=== PATIENT | female | born 1990 | race Caucasian/White ===

== ENCOUNTER 2021-01-19 19:32 | Outpatient (CLI) | payer OTHER ==
[2021-01-19 19:48] LABS: BASOPHILS # (AUTO) 0.1 10^3/uL (0.0-0.1); BASOPHILS % (AUTO) 0.5 %; EOSINOPHILS # (AUTO) 0.2 10^3/uL (0.0-0.7); EOSINOPHILS % (AUTO) 2.2 %; HCT - HEMATOCRIT 39.7 % (37.0-47.0); HGB - HEMOGLOBIN 12.9 g/dL (12.0-16.0); LYMPHOCYTES # (AUTO) 1.7 10^3/uL (1.5-3.5); LYMPHOCYTES % (AUTO) 17.6 %; MEAN CORPUSCULAR HEMOGLOBIN 28.7 pg (27.0-31.0); MEAN CORPUSCULAR HGB CONC 32.5 g/dL (32.0-36.0); MEAN CORPUSCULAR VOLUME 88.4 fL (81.0-99.0); MEAN PLATELET VOLUME 9.8 fL (7.9-10.8); MONOCYTES # (AUTO) 0.5 10^3/uL (0.0-1.0); NEUTROPHILS # (AUTO) 7.2 10^3/uL (1.5-6.6); NEUTROPHILS % (AUTO) 74.5 %; PLT - PLATELET COUNT 289 10^3/uL (130-450); RED BLOOD COUNT 4.49 10^6/uL (4.20-5.40); RED CELL DISTRIBUTION WIDTH 12.6 % (12.0-15.0); WHITE BLOOD COUNT 9.7 x10^3/uL (4.8-10.8)
--- NOTE | 2021-01-20 10:50 | Ultrasound Report ---
PROCEDURE: OB First Trimester w/TV INDICATIONS: POSTIVIE TEST OUTSIDE/PRIOR DATING DATA: Last menstrual period (LMP): 11/05/2020. LMP-based estimated date of delivery (BROCK): 08/12/2021. First dating scan (date and location): 01/19/2021. Estimated date of delivery (BROCK) from first dating scan: 08/30/2021. The below data below was generated using the ultrasound BROCK of 08/30/2021 TECHNIQUE: Real-time scanning was performed of the fetus and maternal pelvic organs, with image documentation. Endovaginal scanning was also performed to better visualize the fetus and maternal ovaries. COMPARISON: None FINDINGS: Embryo: Single living intrauterine identified. pole identified. [place]-rump length me asures 1.7 cm corresponding to ultrasound estimated gestational age of 8 weeks 1 day. heart rat e measured at 160 bpm. Until note made of a small 1.1 x 0.4 cm subchorionic/periimplantational bleed. Measurement variability in dating: +/- 4 weeks by LMP, +/- 7 days by mean sac diameter (use before 6 weeks gestation if crown-rump length not able to be measured), +/- 5 days by crown-rump length (6-12 weeks gestation). Maternal organs: Small right ovarian corpus luteal cyst. Left ovary is sonographically normal. IMPRESSION: Single living intrauterine with ultrasound estimated gestational age of 8 weeks 1 day corre sponding to ultrasound BROCK of 08/30/2021. Reviewed by: Fernanda Arceo MD, PhD on 01/20/2021 10:49 AM PDT Approved by: Fernanda Arceo MD, PhD on 01/20/2021 10:49 AM PDT Station ID: [id number]
[2021-01-21 12:42] LABS: HEPATITIS B SURFACE ANTIGEN NON-REACTIVE (NON-REACTIVE); HEPATITIS C ANTIBODY NON-REACTIVE (NON-REACTIVE)
[2021-01-21 16:07] LABS: HIV AG/AB 4TH GEN NON-REACTIVE (NON-REACTIVE)
== END 2021-01-19 19:33 | disposition home or self-care (01) ==
LOC: DI 19:32
PROVIDERS: ATTEND Obstetrics & Gynecology
DX: Z36.89 Encounter for other specified antenatal screening (principal); Z32.01 Encounter for pregnancy test, result positive
CPT/HCPCS: 36415; 85025; 86592; 86762; 86787; 86803; 86850; 86900; 86901; 87340; 87389

== ENCOUNTER 2021-01-20 08:00 | Outpatient (CLI) | payer OTHER ==
[2021-01-21 13:19] LABS: MUDS CUTOFF CONCENTRATIONS CUTOFF CONC BELOW:
[2021-01-21 13:34] LABS: AMPHETAMINE SCREEN,URINE NEGATIVE (NEGATIVE); BARBITURATE SCREEN,UR NEGATIVE (NEGATIVE); BENZODIAZEPINES SCREEN, URINE NEGATIVE (NEGATIVE); COCAINE SCREEN URINE NEGATIVE (NEGATIVE); METHADONE SCREEN, URINE NEGATIVE (NEGATIVE); METHAMPHETAMINES SCREEN, URINE NEGATIVE (NEGATIVE); OPIATE SCREEN, URINE NEGATIVE (NEGATIVE); OXYCODONE SCREEN, URINE NEGATIVE (NEGATIVE); PROPOXYPHENE SCREEN, URINE NEGATIVE (NEGATIVE); THC CANNABINOID SCREEN, URINE NEGATIVE (NEGATIVE); TRICYCLIC ANTIDEPRESSANT,URINE NEGATIVE (NEGATIVE)
[2021-01-21 20:42] LABS: CHLAMYDIA TRACHOMATIS DNA NEGATIVE (NEGATIVE); NEISSERIA GONORRHOEAE DNA NEGATIVE (NEGATIVE); TRICHOMONAS VAGINALIS DNA NEGATIVE (NEGATIVE)
== END 2021-01-20 23:59 | disposition home or self-care (01) ==
LOC: LAB.WC 08:00
PROVIDERS: ATTEND Obstetrics & Gynecology
DX: Z36.89 Encounter for other specified antenatal screening (principal)
CPT/HCPCS: 80306; 87491; 87591; 87661

== ENCOUNTER 2021-04-12 18:47 | Outpatient (CLI) | payer OTHER ==
--- NOTE | 2021-04-13 12:04 | Ultrasound Report ---
PROCEDURE: OB Detailed Eval INDICATIONS: SUPERV HIGH RISK PREG, FAS OUTSIDE/PRIOR DATING DATA: Last menstrual period (LMP): 11/05/2020. LMP-based estimated date of delivery (BROCK): 08/12/2021. First dating scan (date and location): 01/19/2021. Estimated date of delivery (BROCK) from first dating scan: 08/30/2021. The below data below was generated using the ultrasound BROCK of 08/30/2021 TECHNIQUE: Real-time scanning was performed of the fetus, with image documentation and biometric measurements. Endovaginal scanning: Not performed. COMPARISON: OB ultrasound 01/19/2021 FINDINGS: General: A single living intrauterine gestation is present. Presentation: Variable Placenta: Placental position is fundal, without previa. Amniotic fluid index: 14.6 cm, normal for gestational age. Largest pocket 4.1 cm. heart rate: 150 beats per minute. Maternal cervical canal: 3.9 cm long; normal length is 2.5 cm or more. biometrics: Biparietal diameter: 5.2 cm, 21 weeks 5 days Head circumference: 19.0 cm, 21 weeks 2 days Abdominal circumference: 16.6 cm, 21 weeks 5 days Femur length: 3.4 cm, 20 weeks 5 days Estimated gestational age from initial scan: 20 weeks 0 days Composite gestational age from present scan: 20 weeks 6 days Estimated weight and percentile: 411 g, 97th percentile. Measurement variability in biometric dating: +/- 10 days from 12-20 weeks gestation, +/- 2 weeks from 20-30 weeks gestation, +/- 3 weeks at 30 weeks gestation or later. Anatomic survey: Neuro: Ventricles are normal at less than 10 mm. Cisterna magna is normal at 3-11 mm. Cerebellum i s normal in size and morphology. Nuchal skin fold: Normal at less than 6 mm between 14 and 20 weeks gestational age. Face: Nose and lips, facial profile are normal. Spine: No evidence for spina bifida. Heart: 4-chambered heart is present, with normal ventricular outflow tracts. Diaphragm: Diaphragm is intact. Stomach: Left-sided stomach is present. Kidneys: No hydronephrosis. Normal is less than 5 mm in 2nd trimester, less than 7 mm in 3rd trimester. Cord: 3 vessel cord has orthotopic insertion. Bladder: Normal in size. Extremities: All 4 extremities are visualized. IMPRESSION: 1. Single live intrauterine . 2. Estimated weight 411 g, at the 97th percentile for gestational age. Recommend correlation a nd follow-up to exclude macrosomia. 3. Normal anatomic survey. 4. Normal amniotic fluid index. Reviewed by: David Charles MD on 04/13/2021 12:03 PM PDT Approved by: David Charles MD on 04/13/2021 12:03 PM PDT Station ID: [id number]
== END 2021-04-12 18:48 | disposition home or self-care (01) ==
LOC: DI 18:47
PROVIDERS: ATTEND Obstetrics & Gynecology
DX: O09.92 Supervision of high risk pregnancy, unspecified, second trimester (principal); Z3A.20 20 weeks gestation of pregnancy

== ENCOUNTER 2021-04-21 16:32 | Outpatient (CLI) | payer OTHER | END 2021-04-21 16:33 | disposition home or self-care (01) | LOC: LAB 16:32 | PROVIDERS: ATTEND Obstetrics & Gynecology | DX: O09.90 Supervision of high risk pregnancy, unspecified, unspecified trimester (principal) | CPT/HCPCS: 36415; 82950 ==

== ENCOUNTER 2021-06-27 14:40 | Outpatient (CLI) | payer OTHER | END 2021-06-27 14:41 | disposition home or self-care (01) | LOC: LAB 14:40 | PROVIDERS: ATTEND Obstetrics & Gynecology | DX: O09.90 Supervision of high risk pregnancy, unspecified, unspecified trimester (principal) | CPT/HCPCS: 36415; 82950 ==

== ENCOUNTER 2021-07-20 08:00 | Outpatient (CLI) | payer OTHER | END 2021-07-20 23:59 | disposition home or self-care (01) | LOC: LAB.WC 08:00 | PROVIDERS: ATTEND Obstetrics & Gynecology | DX: Z36.85 Encounter for antenatal screening for Streptococcus B (principal) | CPT/HCPCS: 87797 ==

== ENCOUNTER 2021-07-20 13:52 | Outpatient (CLI) | payer OTHER ==
[2021-07-20 14:38] LABS: BASOPHILS % (AUTO) 0.4 %; EOSINOPHILS # (AUTO) 0.3 10^3/uL (0.0-0.7); EOSINOPHILS % (AUTO) 2.9 %; HCT - HEMATOCRIT 34.1 % (37.0-47.0); HGB - HEMOGLOBIN 11.2 g/dL (12.0-16.0); LYMPHOCYTES # (AUTO) 1.4 10^3/uL (1.5-3.5); LYMPHOCYTES % (AUTO) 15.4 %; MEAN CORPUSCULAR HEMOGLOBIN 26.3 pg (27.0-31.0); MEAN CORPUSCULAR HGB CONC 32.8 g/dL (32.0-36.0); MEAN PLATELET VOLUME 10.5 fL (7.9-10.8); MONOCYTES # (AUTO) 0.9 10^3/uL (0.0-1.0); MONOCYTES % (AUTO) 10.1 %; NEUTROPHILS # (AUTO) 6.3 10^3/uL (1.5-6.6); PLT - PLATELET COUNT 271 10^3/uL (130-450); RED BLOOD COUNT 4.26 10^6/uL (4.20-5.40); RED CELL DISTRIBUTION WIDTH 13.7 % (12.0-15.0); WHITE BLOOD COUNT 9.1 x10^3/uL (4.8-10.8)
[2021-07-20 14:40] LABS: CREATININE,URINE 243.7 mg/dL; PROTEIN/CREATININE RATIO,URINE 0.2 (<=0.2)
[2021-07-20 14:50] LABS: ALBUMIN 2.7 g/dL (3.2-5.5); ALBUMIN/GLOBULIN RATIO 0.7 (1.0-2.2); BILIRUBIN,TOTAL 0.4 mg/dL (0.2-1.0); CALCIUM 9.1 mg/dL (8.5-10.3); CREATININE 0.5 mg/dL (0.4-1.0); POTASSIUM 4.2 mmol/L (3.5-5.0); TOTAL PROTEIN 6.6 g/dL (6.7-8.2)
[2021-07-20 15:27] VITALS: BP 159/79
--- NOTE | 2021-07-20 16:53 | PROVIDER PROGRESS NOTE ---
- HPI Chief Complaint: Hypertension/PIH Current : Vital Signs Blood Pressure 154/69 H 07/20/21 14:10 Temperature 98.6 F 07/20/21 14:18 Heart Rate Respiratory Rate Blood Pressure 159/79 H 07/20/21 15:10 O2 Saturation - Procedures OB Procedure Performed: NST Diagnosis/Indication for NST: Gestational Hypertension NST Procedure: FHT: 130 beats per baseline, moderate variability, accelerations present, no decelerations. [place]: Irregular, not strong enough to bother patient. Service Date of procedure: 07/20/21 (Read 07/20/21) Procedure Details: NST Procedure Start Date 07/20/21 Start Time 14:10 Stop Time 15:55 Vibroacoustic Stimulation Used No Patient States Movement Yes Findings: Patient is a 30-year-old G1, P0 at 34 weeks 1 day [id number] presenting to triage for gestational hypertension. She was sent from clinic today for elevated blood pressures. She has good movement, no leaking, no vaginal bleeding. She denies headache, right upper quadrant pain, changes in vision. Past medical history Anxiety Obesity Past surgical history Wrist surgery Family history Mother: Obesity Father: Obesity, diabetes, hypertension Maternal grandfather: Lung cancer Social history Denies tobacco, alcohol, drugs Physical Temp Pulse Resp BP Pulse Ox 98.6 F 159/79 H 07/20/21 14:18 07/20/21 15:10 Constitutional: alert, no acute distress, well hydrated, well developed, well no urished, appropriate dress. Skin: normal turgor, normal color. Head: atraumatic, normocephalic. Cardiovascular: RRR. Respiratory: no respiratory distress. Abdomen: Gravid nondistended, nontender. Neurologic: normal, sensation intact, motor intact. Psych: affect and mood appropriate, normal interaction, good eye contact. Assessment and plan 30-year-old at 34 weeks 1 day gestation with gestational hypertension 1. Gestational hypertension: -No signs or symptoms of preeclampsia -Platelets, AST/ALT, protein creatinine ratio were all normal. -Patient did have elevated blood pressure, but these were done with a cuff to small along her forearm. Repeated with an adequate cuff sized on her upper arm and were elevated, but not severe range. -Patient has follow-up in clinic for blood pressure check as well as subsequent check. -Preeclampsia warning signs and labor precautions given. -Discussed induction of labor at 37 weeks or sooner if symptoms worsen.
== END 2021-07-20 16:55 | disposition home or self-care (01) ==
LOC: WFO 13:52 → FBP 13:55 → WFO 16:55
PROVIDERS: ATTEND Obstetrics & Gynecology
DX: O13.3 Gestational [pregnancy-induced] hypertension without significant proteinuria, third trimester (principal); Z3A.34 34 weeks gestation of pregnancy
CPT/HCPCS: 36415; 59025; 80053; 82570; 84156; 85025; 99215

== ENCOUNTER 2021-07-29 17:09 | Outpatient (CLI) | payer OTHER ==
--- NOTE | 2021-08-01 10:49 | Ultrasound Report ---
PROCEDURE: OB F/U or Repeat INDICATIONS: SUPERV OF HIGH RISK PREG, EXCESSIVE GROWTH OUTSIDE/PRIOR DATING DATA: Last menstrual period (LMP): 11/05/2020. LMP-based estimated date of delivery (BROCK): 08/12/2021. First dating scan (date and location): 01/19/2021. Estimated date of delivery (BROCK) from first dating scan: 08/30/2021. The below data below was generated using the ultrasound derived BROCK of 08/30/2021 TECHNIQUE: Real-time scanning was performed of the fetus, with image documentation and biometric measurements. COMPARISON: 04/12/2021, 01/19/2021. FINDINGS: General: A single living intrauterine gestation is present. Presentation: Vertex Placenta: Placental position is fundal, without previa. Amniotic fluid index: 11.1 cm, within normal limits for gestational age. Largest pocket measures 4.6 cm. heart rate: 121 beats per minute. Maternal cervical canal: Not well seen. biometrics: Biparietal diameter: 9.2 cm, 37 weeks 3 days Head circumference: 33.7 cm, 38 weeks 5 days Abdominal circumference: 35.2 cm, 39 weeks 1 day Femur length: 7.0 cm, 35 weeks 6 days Estimated gestational age from initial scan: 35 weeks 3 days Composite gestational age from present scan: 37 weeks 6 days Estimated weight and percentile: 3408 g corresponding to the 98th percentile Measurement variability in biometric dating: +/- 10 days from 12-20 weeks gestation, +/- 2 weeks from 20-30 weeks gestation, +/- 3 weeks at 30 weeks gestation or more. IMPRESSION: 1. Single living intrauterine demonstrating interval growth with estimated weight at the 98th percentile, again suggestive of developing macrosomia. 2. Maternal cervical canal not well seen. 3. Amniotic fluid index within normal limits. Reviewed by: Ray Alicea MD on 08/01/2021 10:47 AM PST Approved by: Ray Alicea MD on 08/01/2021 10:47 AM PST Station ID: [id number]
== END 2021-07-29 17:10 | disposition home or self-care (01) ==
LOC: DI 17:09
PROVIDERS: ATTEND Obstetrics & Gynecology
DX: O09.93 Supervision of high risk pregnancy, unspecified, third trimester (principal); O36.63X1 Maternal care for excessive fetal growth, third trimester, fetus 1; Z3A.37 37 weeks gestation of pregnancy

== ENCOUNTER 2021-08-03 10:33 | Outpatient (CLI) | payer OTHER ==
[2021-08-03 10:51] VITALS: BP 120/73
--- NOTE | 2021-08-03 12:51 | Ultrasound Report ---
PROCEDURE: OB Limited INDICATIONS: gest. HTN OUTSIDE/PRIOR DATING DATA: Last menstrual period (LMP): 11/05/2020. LMP-based estimated date of delivery (BROCK): 08/12/2021. First dating scan (date and location): 01/19/2021. Estimated date of delivery (BROCK) from first dating scan: 08/30/2021. The below data below was generated using the ultrasound BROCK of 08/30/2021 TECHNIQUE: Real-time scanning was performed of the fetus, with image documentation. Endovaginal scanning: Not performed. COMPARISON: OB ultrasound 07/29/2021. FINDINGS: A single living intrauterine gestation is present. Presentation: Vertex Placenta: Placental position is anterior fundal, without previa. Amniotic fluid index: 23.7 cm, normal for gestational age. Largest pocket 7 cm. heart rate: 140 beats per minutes. Maternal cervical canal: Not well seen. Estimated gestational age from initial scan: 36 weeks 1 day. IMPRESSION: 1. Cadena living intrauterine at 36 weeks 1 day based on prior ultrasound. Vertex positi on. 2. Normal placenta. MARIA D 23.7 cm is within normal limits. Reviewed by: Tyson Smith MD on 08/03/2021 12:50 PM PST Approved by: Tyson Smith MD on 08/03/2021 12:50 PM PST Station ID: [id number]
--- NOTE | 2021-08-03 14:58 | PROCEDURE REPORT ---
- HPI Diagnosis/Indication for NST: Gestational Hypertension Current EDU 08/30/21 Gestation 36 Weeks and 1 Days 1 Para 0 Vital Signs Temperature 98.6 F 08/03/21 10:41 Heart Rate 98 08/03/21 10:41 Respiratory Rate 18 08/03/21 10:41 Blood Pressure 120/73 08/03/21 10:41 Temperature 98.6 F 08/03/21 10:41 Heart Rate 98 08/03/21 10:41 Respiratory Rate 18 08/03/21 10:41 Blood Pressure 120/73 08/03/21 10:41 O2 Saturation - NST Procedure NST Procedure Start Date 08/03/21 Start Time 10:45 Stop Time 11:30 Vibroacoustic Stimulation Used No Patient States Movement Yes - Results and Plan Findings/Impression: heart rate baseline-140beats per minutes Moderate variability Accelerations 15x15 Decelerations none Contractions rare NST reactive and reassuring MARIA D 23 ultrasound., High normal Plan: Continue twice-weekly NST/ BPP
== END 2021-08-03 12:15 | disposition home or self-care (01) ==
LOC: WFO 10:33 → FBP 10:35 → WFO 12:15
PROVIDERS: ATTEND Obstetrics & Gynecology
DX: O13.3 Gestational [pregnancy-induced] hypertension without significant proteinuria, third trimester (principal); Z3A.36 36 weeks gestation of pregnancy
CPT/HCPCS: 59025

== ENCOUNTER 2021-08-08 13:02 | Outpatient (CLI) | payer OTHER ==
[2021-08-08 13:19] VITALS: BP 136/81
--- NOTE | 2021-08-08 15:54 | Ultrasound Report ---
PROCEDURE: OB Limited INDICATIONS: Gestational hypertension; ; EDC 08/30/2021 OUTSIDE/PRIOR DATING DATA: Last menstrual period (LMP): 11/05/2020. LMP-based estimated date of delivery (BROCK): 08/12/2021. First dating scan (date and location): 01/19/2021. Estimated date of delivery (BROCK) from first dating scan: 08/30/2021. The below data below was generated using the ultrasound BROCK of 08/30/2021 TECHNIQUE: Real-time scanning was performed of the fetus, with image documentation. Endovaginal scanning: Not performed COMPARISON: 08/03/2021 FINDINGS: A single living intrauterine gestation is present. Presentation: Vertex Placenta: Placental position is fundal, without previa. Amniotic fluid index: 20.6 cm, within normal limits for gestational age. (Previously 23.7 cm). Larges t pocket 9.1 cm. heart rate: 145 beats per minutes. Maternal cervical canal: 3.3 cm long; normal length is 2.5 cm or more. Not well seen. Estimated gestational age from initial scan: 36 weeks 6 days. IMPRESSION: 1. Cadena living intrauterine at 36 weeks 6 days based on prior ultrasound. Vertex posit ion. 2. Normal placenta. MARIA D within normal limits measuring 20.6 cm. Reviewed by: Tyson Smith MD on 08/08/2021 3:52 PM PST Approved by: Tyson Smith MD on 08/08/2021 3:52 PM PST Station ID: [id number]
--- NOTE | 2021-08-08 19:37 | PROCEDURE REPORT ---
- HPI Diagnosis/Indication for NST: Gestational Hypertension Current EDU 08/30/21 Gestation 36 Weeks and 6 Days 1 Para 0 Vital Signs Temperature 97.8 F 08/08/21 13:13 Heart Rate 99 08/08/21 13:13 Respiratory Rate 18 08/08/21 13:13 Blood Pressure 136/81 H 08/08/21 13:13 Temperature 97.9 F 08/08/21 13:16 Heart Rate 99 08/08/21 13:16 Respiratory Rate 18 08/08/21 13:16 Blood Pressure 136/81 H 08/08/21 13:16 O2 Saturation 100 08/08/21 13:16 - NST Procedure NST Procedure Start Date 08/08/21 Start Time 13:12 Stop Time 13:33 Vibroacoustic Stimulation Used No Patient States Movement Yes EFM 135 mod ellis 15x15 accels no decels TOCO: quiet - Results and Plan Plan: Patient is a 30 yo at 36+6 with affected by GHTN and suspected macrosomia Cat I tracing MARIA D 20 Plan for IOL tomorrow at 37 weeks DOS: 08/08/21 NST read: 08/08/21 DX: IUP at 36+6 wga Gestational HTN Suspected macrosomia
== END 2021-08-08 15:20 | disposition home or self-care (01) ==
LOC: WFO 13:02 → FBP 13:07 → WFO 15:20
PROVIDERS: ATTEND Obstetrics & Gynecology
DX: O13.3 Gestational [pregnancy-induced] hypertension without significant proteinuria, third trimester (principal); Z3A.36 36 weeks gestation of pregnancy
CPT/HCPCS: 59025

== ENCOUNTER 2021-08-08 21:19 | Inpatient (IN) | payer OTHER ==
[2021-08-08] MEDS ORDERED: LIDOCAINE-MPF 1% 30 ML VIAL ID PRN (21:24)
[2021-08-08] MEDS ORDERED: miSOPROStoL 200 MCG TABLET BC ONE (21:24)
[2021-08-08] MEDS ORDERED: SODIUM CHLORIDE FLUSH 0.9% 10 ML SYRINGE IVP PRN (21:24)
[2021-08-08] MEDS ORDERED: METHYLERGONOVINE 0.2 MG/ML VIAL IM PRN (21:24)
[2021-08-08] MEDS ORDERED: TERBUTALINE 1 MG/ML VIAL SUBQ PRN (21:24)
[2021-08-08] MEDS ORDERED: hydrALAZINE INJ 20 MG/ML VIAL IVP PRN ×2 (21:24)
[2021-08-08] MEDS ORDERED: OXYTOCIN/SODIUM CHLORIDE 500 ML IV PRN (21:24)
[2021-08-08] MEDS ORDERED: LABETALOL 20 MG/4 ML SYRINGE IVP PRN ×3 (21:24)
[2021-08-08] MEDS ORDERED: NIFEdipine 10 MG CAPSULE PO PRN (21:24)
[2021-08-08] MEDS ORDERED: miSOPROStoL 200 MCG TABLET PR ONE (21:24)
[2021-08-08] MEDS ORDERED: CARBOPROST TROMETHAMINE 250 MCG/ML AMP IM PRN (21:24)
[2021-08-08] MEDS ORDERED: OXYTOCIN 10 UNIT/ML VIAL IM PRN (21:24)
[2021-08-08] MEDS ORDERED: TRANEXAMIC ACID IN NACL 1,000 MG/100 ML BAG IV PRN (21:24)
[2021-08-08] MEDS ORDERED: fentaNYL 100 MCG/2 ML VIAL IVP PRN (21:24)
--- NOTE | 2021-08-08 21:36 | HISTORY & PHYSICAL EXAMINATION ---
Admit History - Visit Reason Visit Reason: Membranes rupture - : 1 Parity: 0 Risk/History: positive: induced HTN, High risk - Mother's Labs Mother's Blood Type: positive: A Mother's RH: positive: Positive GBS: positive: Group B Step Negative Rubella Status: positive: Immune - Other Maternal History Other Maternal History: ID: Patient is a 30 yo at 36+6 wga here with ruptured membranes HPI: has been complicated by GHTN with plan for IOL on 08/09/21. Patient reports large gush of fluid this evening as she was planning for a bath. Continues to have high volume leakage. Not feeling contractions but has contraction on monitor. No VB. Endorses movement. Mild range pressures during late . No PIH symptoms and negative PIH labs. Has been having severe pruritus in late . BA ordered but not completed. Continues to have severe itching. Measures size greater than dates. EFW 97%ile with 3408g estimated at 34-35 weeks. PNC: LMP 11/05/20 gives BROCK of 08/12/2021 US on 01/19/21 at 8w1d gives BROCK 08/30/21 Final BROCK 08/30/21 BMI>40: -ASA 81 mg at 12 week -early glucola- 121 - Suspected macrosomia -S>D; US at 35 weeks shows EFW 98%ile, 3408 g Pruritus today: ordering BA anf LFTs A pos/Rub imm GENETICS: Desires [place] with AFP- declined by ; declines other testing -Also desires CF carrier screening- ordered. Discussed in FU. Did not complete. FAS: EFW 97%ile, 3VC, fundal, CL 3.9 FAS wnl TDAP 06/09 Influenza declined Glucola: 121- early glcuola Repeat Glucola 06/27 results 133 HSV Denies GBS: 07/20/2021 NEGATIVE Breast pump: 06/08 PAP: Patient prefers to wait until 6 week pp visit Past Medical History: Reviewed and updated today: Anxiety Disorder BMI > 40 Past Surgical History: wrist (2013) Family History Summary: Weight Disorder for Mother Diabetes for Father Hypertension for Father Weight Disorder for Father Lung Cancer for Aunt Lung Cancer for Maternal Grandfather Social History Summary: Patient has never smoked. Patient has never used smokeless tobacco. 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 -Patient would like to have an hour to see if labor progresses and then is open to pitocin -Reviewed risks of choriomanionitis. Increases with increased frequency of SVE, will limit cervical exams -Open to augmentation with pitocin as indicated GHTN: Isolated severe range pressure with subsequent mild rnage -No PIH symptoms -PIH labs pending -Labetalol vs nifed for severe range pressures; orders submitted -Magnesium infusion with onset of severe features QUESTION OF CHOLESTASIS: Patient with ongoign pruritus -Did not complete BA assessment -LFTs pending at admit FWB: Vertex, suspected LGA, GBS negative, Cat I tracing -CEFM -Remain cognizant of EFW in the setting of dystotic labor course. VAVD only with careful consideration of clinical scenario PAIN: Desires epidural. OK with placement on patient request In-patient care Meds/Allgy - Allergies Allergies/Adverse Reactions: Allergies Allergy/AdvReac Type Severity Reaction Status Date / Time shellfish derived Allergy Unknown Unknown Verified 08/08/21 21:38
[2021-08-08] MEDS ORDERED: LACTATED RINGERS 500 ML IV ONE (21:38)
[2021-08-08] MEDS: SODIUM CHLORIDE FLUSH 0.9% 10 ML SYRINGE IVP SCH (22:40)
[2021-08-08 23:50] LABS: BASOPHILS # (AUTO) 0.1 10^3/uL (0.0-0.1); BASOPHILS % (AUTO) 0.5 %; EOSINOPHILS # (AUTO) 0.3 10^3/uL (0.0-0.7); EOSINOPHILS % (AUTO) 2.8 %; HCT - HEMATOCRIT 31.8 % (37.0-47.0); HGB - HEMOGLOBIN 10.3 g/dL (12.0-16.0); LYMPHOCYTES # (AUTO) 1.5 10^3/uL (1.5-3.5); LYMPHOCYTES % (AUTO) 16.6 %; MEAN CORPUSCULAR HEMOGLOBIN 25.7 pg (27.0-31.0); MEAN CORPUSCULAR HGB CONC 32.4 g/dL (32.0-36.0); MEAN CORPUSCULAR VOLUME 79.3 fL (81.0-99.0); MEAN PLATELET VOLUME 11.5 fL (7.9-10.8); MONOCYTES # (AUTO) 0.9 10^3/uL (0.0-1.0); MONOCYTES % (AUTO) 9.5 %; NEUTROPHILS # (AUTO) 6.4 10^3/uL (1.5-6.6); NEUTROPHILS % (AUTO) 69.9 %; PLT - PLATELET COUNT 267 10^3/uL (130-450); RED BLOOD COUNT 4.01 10^6/uL (4.20-5.40); RED CELL DISTRIBUTION WIDTH 14.2 % (12.0-15.0); WHITE BLOOD COUNT 9.2 x10^3/uL (4.8-10.8)
[2021-08-09 00:03] LABS: ALBUMIN 2.5 g/dL (3.2-5.5); ALBUMIN/GLOBULIN RATIO 0.6 (1.0-2.2); BILIRUBIN,TOTAL 0.3 mg/dL (0.2-1.0); CALCIUM 8.6 mg/dL (8.5-10.3); CREATININE 0.5 mg/dL (0.4-1.0); POTASSIUM 3.9 mmol/L (3.5-5.0); TOTAL PROTEIN 6.5 g/dL (6.7-8.2)
[2021-08-09] MEDS: LACTATED RINGERS 1,000 ML IV SCH ×2 (00:38→08:34)
[2021-08-09] MEDS ORDERED: OXYTOCIN/SODIUM CHLORIDE 500 ML IV SCH (01:00)
[2021-08-09] MEDS: LABETALOL 100 MG TABLET PO SCH ×3 (01:25→14:32)
--- NOTE | 2021-08-09 01:34 | ANESTHESIA ---
Pre-Anesthesia VS, & Labs - Diagnosis active labor - Procedure labor epidural Vital Signs: Temp Pulse Resp BP Pulse Ox 37.4 C 87 20 151/73 H 08/08/21 22:20 08/08/21 22:20 08/08/21 22:20 08/08/21 22:20 Height: 5 ft 7 in Weight (kg): 127.913 kg Body Mass Index: 44.1 BMI Classification: Morbidly Obese - NPO >8 hours - Is Patient ?: Yes - Lab Results Current Lab Results: Laboratory Tests 08/08/21 22:40: Blood Type A POSITIVE, Antibody Screen NEGATIVE, Crossmatch IS Only See Detail 08/08/21 22:40: Sodium 129 L, Potassium 3.9, Chloride 101, Carbon Dioxide 18 L, Anion Gap 10.0, BUN 12, Creatinine 0.5, Estimated GFR (MDRD) 147, Glucose 145 H, Calcium 8.6, Total Bilirubin 0.3, AST 22, ALT 28, Alkaline Phosphatase 194 H, Total Protein 6.5 L, Albumin 2.5 L, Globulin 4.0, Albumin/Globulin Ratio 0.6 L 08/08/21 22:40: WBC 9.2, RBC 4.01 L, Hgb 10.3 L, Hct 31.8 L, MCV 79.3 L, MCH 25.7 L, MCHC 32.4, RDW 14.2, Plt Count 267, MPV 11.5 H, Neut # (Auto) 6.4, Lymph # (Auto) 1.5, [place] # (Auto) 0.9, Eos # (Auto) 0.3, Baso # (Auto) 0.1, Absolute Nucleated RBC 0.00, Nucleated RBC % 0.0 Lab results reviewed: Yes Fish Bones: 08/08/21 22:40 08/08/21 22:40 Home Medications and Allergies Active Medications Carboprost Tromethamine (Carboprost Tromethamine 250 Mcg/Ml Amp) 250 mcg IM ONCE PRN PRN Reason: Hemorrhage Stop: 08/09/21 21:23 Fentanyl (Fentanyl 100 Mcg/2 Ml Vial) 50 mcg IVP Q1H PRN PRN Reason: Severe Pain (score 7-10) Hydralazine HCl (Hydralazine Inj 20 Mg/Ml Vial) 10 mg IVP ONCE PRN; Protocol PRN Reason: SBP> or= 160 OR DBP> or= 110 Stop: 08/09/21 21:23 Hydralazine HCl (Hydralazine Inj 20 Mg/Ml Vial) 10 mg IVP .ONCE PRN; Protocol PRN Reason: Step 9 of Labetalol protocol Stop: 08/13/21 21:29 Oxytocin/Sodium Chloride (Pitocin/Sodium Chloride) 500 mls @ 999 mls/hr IV PRN PRN; Protocol PRN Reason: POST- HEMORR PREVENTION Tranexamic Acid (Tranexamic 1,000 Mg/100ml-Nacl) 1,000 mg in 100 mls @ 600 mls/hr IV Q30M PRN PRN Reason: EBL >1200mL and within 3hr Lactated Ringer's (Lr) 1,000 mls @ 125 mls/hr IV .Q8H RONEY Last Admin: 08/09/21 00:38 Dose: 125 mls/hr Documented by: Oxytocin/Sodium Chloride (Pitocin/Sodium Chloride) 500 mls @ 1 mls/hr IV TITR RONEY; Protocol Last Admin: 08/09/21 00:45 Dose: 1 milliunit/min, 1 mls/hr Documented by: Labetalol HCl (Labetalol 20 Mg/4 Ml Syringe) 20 mg IVP ONCE PRN; Protocol PRN Reason: SBP> or= 160 OR DBP> or= 110 Stop: 08/11/21 21:23 Labetalol HCl (Labetalol 20 Mg/4 Ml Syringe) 20 - 80 mg IVP Q10M PRN; Protocol PRN Reason: SBP> or= 160 OR DBP> or= 110 Labetalol HCl (Labetalol 20 Mg/4 Ml Syringe) 20 mg IVP .ONCE PRN; Protocol PRN Reason: Step 9 of nifedipine protocol Stop: 08/13/21 21:29 Labetalol HCl (Labetalol 100 Mg Tablet) 100 mg PO BID RONEY Last Admin: 08/09/21 01:26 Dose: 100 mg Documented by: Lidocaine HCl (Lidocaine-Mpf 1% 30 Ml Vial) 30 ml ID ONCE PRN PRN Reason: PERINEAL REPAIR Stop: 08/09/21 21:24 Methylergonovine Maleate (Methylergonovine 0.2 Mg/Ml Vial) 0.2 mg IM ONCE PRN PRN Reason: Hemorrhage Stop: 08/12/21 21:23 Nifedipine (Nifedipine 10 Mg Capsule) 10 - 20 mg PO Q20M PRN; Protocol PRN Reason: SBP> or= 160 OR DBP> or= 110 Oxytocin (Oxytocin 10 Unit/Ml Vial) 10 unit IM ONCE PRN PRN Reason: Step One if no IV access. Stop: 08/12/21 21:23 Sodium Chloride (Sodium Chloride Flush 0.9% 10 Ml Syringe) 10 ml IVP PRN PRN PRN Reason: NEEDED PER PROVIDER ORDERS Sodium Chloride (Sodium Chloride Flush 0.9% 10 Ml Syringe) 10 ml IVP Q8H RONEY Last Admin: 08/08/21 22:40 Dose: 10 ml Documented by: Terbutaline Sulfate (Terbutaline 1 Mg/Ml Vial) 0.25 mg SUBQ ONCE PRN PRN Reason: Tachystole Stop: 08/12/21 21:23 Allergies/Adverse Reactions: Allergies Allergy/AdvReac Type Severity Reaction Status Date / Time shellfish derived Allergy Unknown Unknown Verified 08/08/21 21:38 Anes History & Medical History - Anesthetic History Anesthesia Complications: reports: No previous complications Family history of Anesthesia Complications: Denies Family history of Malignant Hyperthermia: Denies - Medical History Cardiovascular: reports: None Pulmonary: reports: None Gastrointestinal: reports: None Urinary: reports: None Neuro: reports: None Musculoskeletal: reports: None Endocrine/Autoimmune: reports: None Blood Disorders: reports: None Skin: reports: None Smoking Status: Former smoker Psychosocial: reports: No issues indicated History of Cancer?: No - Obstetrical History : 1 Parity: 0 Events: reports: induced HTN, High risk Exam General: Alert, Oriented x3, Cooperative, No acute distress Dental: WNL Plan Anesthesia Type: Epidural Consent for Procedure(s) Verified and Reviewed: Yes Code Status: Attempt Resuscitation ASA classification: 3-Severe systemic disease Is this case an emergency?: No
[2021-08-09] MEDS: CALCIUM CARBONATE CHEW 500 MG TABLET PO STA ×2 (04:26→04:27)
[2021-08-09] MEDS ORDERED: ROPIVACAINE 0.2% 200 MG/100 ML BAG EP ONE (07:29)
[2021-08-09] MEDS ORDERED: LIDOCAINE-MPF 1% 30 ML VIAL ONE (07:50)
[2021-08-09] MEDS ORDERED: NALBUPHINE 10 MG/ML AMP IVP PRN (08:28)
[2021-08-09] MEDS ORDERED: ePHEDrine 50 MG/ML VIAL IVP PRN (08:28)
[2021-08-09] MEDS ORDERED: ROPIVACAINE 0.2% 200 MG/100 ML BAG EP PRN (08:28)
[2021-08-09] MEDS ORDERED: diphenhydrAMINE INJ 50 MG/ML VIAL IVP PRN (08:28)
[2021-08-09] MEDS ORDERED: METOCLOPRAMIDE 10 MG/2 ML VIAL IVP PRN (08:28)
[2021-08-09] MEDS ORDERED: NALOXONE 0.4 MG/ML VIAL IVP PRN (08:28)
--- NOTE | 2021-08-09 08:30 | PROVIDER PROGRESS NOTE ---
Subjective - Prog Note Date Prog Note Date: 08/09/21 Prog Note Time: 08:28 - Subjective Subjective: Patient has gotten an epidural this am. Had one dose of fentanyl and nitrous oxide this am. [place] at present. BPs are in mild range on labetalol 100 mg po bid. Pitocin currently at 8 mU/min. Fluid remains clear. Objective - Vital Signs/Intake & Output Reviewed Vital Signs: Yes Vital Signs: see Centricity- mild range pressures Intake & Output: Intake & Output 08/06/21 08/07/21 08/08/21 08/09/21 23:59 23:59 23:59 23:59 Intake Total 800 Output Total 125 350 Balance -125 450 - Objective General Appearance: positive: No acute distress Respiratory: positive: No respiratory distress Cardiovascular: positive: Other (RR) Abdomen: positive: Non-tender (gravid, S&NT) Skin: positive: Color nml Extremities: positive: Non-tender Neurologic/Psychiatric: positive: Oriented x3 Comments/Other: SVE 5/70/-1, soft - Lab Results Fish Bones: 08/08/21 22:40 08/08/21 22:40 Other Labs: Lab Results x24hrs 08/08/21 08/08/21 08/08/21 Range/Units 22:40 22:40 22:40 WBC 9.2 (4.8-10.8) x10^3/uL RBC 4.01 L (4.20-5.40) 10^6/uL Hgb 10.3 L (12.0-16.0) g/dL Hct 31.8 L (37.0-47.0) % MCV 79.3 L (81.0-99.0) fL MCH 25.7 L (27.0-31.0) pg MCHC 32.4 (32.0-36.0) g/dL RDW 14.2 (12.0-15.0) % Plt Count 267 (130-450) 10^3/uL MPV 11.5 H (7.9-10.8) fL Neut # (Auto) 6.4 (1.5-6.6) 10^3/uL Lymph # (Auto) 1.5 (1.5-3.5) 10^3/uL [place] # (Auto) 0.9 (0.0-1.0) 10^3/uL Eos # (Auto) 0.3 (0.0-0.7) 10^3/uL Baso # (Auto) 0.1 (0.0-0.1) 10^3/uL Absolute Nucleated RBC 0.00 x10^3/uL Nucleated RBC % 0.0 /100WBC Sodium 129 L (135-145) mmol/L Potassium 3.9 (3.5-5.0) mmol/L Chloride 101 (101-111) mmol/L Carbon Dioxide 18 L (21-32) mmol/L Anion Gap 10.0 (6-13) BUN 12 (6-20) mg/dL Creatinine 0.5 (0.4-1.0) mg/dL Estimated GFR (MDRD) 147 (>89) Glucose 145 H (70-100) mg/dL Calcium 8.6 (8.5-10.3) mg/dL Total Bilirubin 0.3 (0.2-1.0) mg/dL AST 22 (10-42) IU/L ALT 28 (10-60) IU/L Alkaline Phosphatase 194 H (42-121) IU/L Total Protein 6.5 L (6.7-8.2) g/dL Albumin 2.5 L (3.2-5.5) g/dL Globulin 4.0 (2.1-4.2) g/dL Albumin/Globulin Ratio 0.6 L (1.0-2.2) Blood Type A POSITIVE Antibody Screen NEGATIVE Crossmatch IS Only See Detail Assessment/Plan - Problem List (1) Labor abnormality Impression: SROM: -on pitocin 8 mU/min -Cat I tracing -slow change GHTN: mild pressures on labetalol 100 mg po bid -Normal PIH labs Continue with pitocin augmentation
[2021-08-09] MEDS: ONDANSETRON 4 MG/2 ML VIAL IVP PRN ×2 (09:37→21:48)
[2021-08-09] MEDS: SODIUM CHLORIDE FLUSH 0.9% 10 ML SYRINGE IVP SCH (09:37)
[2021-08-09] MEDS: CALCIUM CARBONATE CHEW 500 MG TABLET PO PRN ×2 (11:46→21:50)
--- NOTE | 2021-08-09 15:31 | PROVIDER PROGRESS NOTE ---
Labor Progress Note - Uterine Monitoring Uterine Monitoring Mode: positive: IUPC Contraction Frequency (min/apart): 2-3 Contraction Intensity: positive: Mild to moderate Uterine Resting Tone: positive: Soft - Monitoring Monitor Mode: positive: External ultrasound Heart Rate Baseline: 130 Heart Rate Variability: positive: Moderate (6-25 bmp) Accelerations: positive: Present, 15x15 Decelerations: positive: None Strip Review: positive: Category I - Vaginal Exam Dilation (in cm): 5 Effacement (%): 90 Station: -2 Cervical Position: Midposition - Labor Progress Note Labor Progress Note/Additional Text: Patient making minimal change, although quite effaced. IUPC placed at this check. Oxytocin at 16 bruce units per minute. Will continue augmentation at this time.
--- NOTE | 2021-08-09 20:43 | PROVIDER PROGRESS NOTE ---
Labor Progress Note - Uterine Monitoring Uterine Monitoring Mode: positive: External toco Contraction Frequency (min/apart): 2-4 Contraction Intensity: positive: Mild to moderate Uterine Resting Tone: positive: Soft - Monitoring Monitor Mode: positive: External ultrasound Heart Rate Baseline: 130 Heart Rate Variability: positive: Moderate (6-25 bmp) Accelerations: positive: Present, 15x15 Decelerations: positive: None Strip Review: positive: Category I - Vaginal Exam Dilation (in cm): 7 Effacement (%): 90 Cervical Position: Posterior - Labor Progress Note Labor Progress Note/Additional Text: Patient making slow change, and there was some discrepancy over the last check. From my last exam, she is changed approximately 2 cm over 5 hours which is slower than expected. She did have oxytocin discontinued for 30 minutes and was recently restarted. Will allow her to continue augmentation with oxytocin. No signs of chorioamnionitis at this time. Ruptured for 23 hours. If she presents is febrile or develops tachycardia, will likely proceed with section if remote from delivery.
[2021-08-10] MEDS: CALCIUM CARBONATE CHEW 500 MG TABLET PO PRN ×2 (03:29→21:37)
[2021-08-10] MEDS ORDERED: CARBOPROST TROMETHAMINE 250 MCG/ML AMP IM ONE ×2 (04:11→04:32)
[2021-08-10] MEDS ORDERED: METHYLERGONOVINE 0.2 MG/ML VIAL ONE (04:11)
[2021-08-10] MEDS ORDERED: DIPHENOX/ATROPINE 2.5/0.025 MG TABLET PO PRN (05:10)
--- NOTE | 2021-08-10 05:17 | DELIVERY NOTE ---
Delivery Note - Labor Labor: positive: Augmented by oxytocin - Delivery Method Delivery Method: positive: Spontaneous vaginal delivery - Presentation Presentation: positive: ABHISHEK - right occiput anterior - Nuchal Cord Nuchal Cord: positive: None - Anesthetic Anesthetic Type: - Episiotomy Type Episiotomy Type: positive: None - Laceration Laceration: positive: 1st degree - Suture Suture Type: positive: Vicryl Suture Size: positive: 3-0 - Delivery Outcome Delivery Outcome: positive: Livebirth - [place] : positive: Placed in direct skin contact with mother, Bulb syringe, Warmed, [place] used, Warmer used sex: positive: Male - Cord Cord: positive: 3 vessels - Placenta Placenta: positive: Intact - Estimated Blood Loss Estimated Blood Loss (in cc): 700 - Post Delivery Events Post Delivery Events: positive: No post delivery events - Delivery Comments (Free Text/Narrative) Delivery Comments (Free Text/Narrative): Preoperative Diagnoses 37 weeks gestation Term labor/SROM Gestational hypertension Postoperative Diagnoses Same Prolonged rupture of membranes Delivered Shoulder dystocia Large for gestational age Delivery Summary: Patient presented at 36 weeks 6 days gestation with spontaneous rupture of membranes at home. She was admitted to labor and delivery and after 1 hour started on oxytocin. She had a prolonged rupture of membranes. She made slow progress until active labor. After this, she progressed normally until complete and began pushing. She pushed for approximately 60 minutes when the delivery provider was called. Patient was placed in the dorsal lithotomy position. Upon maternal pushing the head was delivered atraumatically, but a shoulder dystocia was noted which resolved with gentle traction while performing Ale maneuver and suprapubic pressure. This lasted for approximately 40 seconds. The anterior shoulder then delivered easily followed by the posterior shoulder, then the remainder of the 's body. A male infant was delivered with APGARS of 6 at 1 minute and 8 at 5 minutes. After the cord finished pulsating, the umbilical cord was clamped times two and cut. The infant was taken to the warmer for further assessment. Thirty units of Pitocin were added to the IV fluid and allowed to run freely. The placenta delivered intact with three vessel cord, however this took slightly longer than normal with approximately 40 minutes to deliver the placenta.. Placenta was sent to pathology. Uterine massage was performed until uterus was deemed firm. Upon inspection of the perineum, a first-degree laceration was noted which was repaired with a stitch of 3-0 Vicryl. Upon re-inspection the patient was hemostatic, however the patient had intermittent atony with large gushes of blood during the procedure. She initially received a dose of 250 mcg of Hemabate IM. After the repair was completed, she was noted to still have intermittent gushes and received a dose of tranexamic acid. As bleeding conitnued, the patient received 800 mcg of misoprostol MA. Uterus again massaged and found to be firm. Patient was firm at that time, and needle and sponge counts were correct. Patient was stable and allowed to recover in L&D room. Infant was stable and remained in room with mother. weight 3994 g. My assessment of the showed symmetrical use of both upper extremities. Discussed shoulder dystocia with patient and her partner.
[2021-08-10] MEDS: ONDANSETRON 4 MG/2 ML VIAL IVP PRN (05:26)
[2021-08-10] MEDS ORDERED: HYDROCORTISONE 1% CREAM 28 GM TUBE PR PRN (06:30)
[2021-08-10] MEDS ORDERED: LACTATED RINGERS 1,000 ML IV SCH (06:30)
[2021-08-10] MEDS ORDERED: WITCH HAZEL/GLYCERIN 1 PAD TOP PRN (06:30)
[2021-08-10] MEDS: LABETALOL 100 MG TABLET PO SCH ×2 (08:32→21:37)
[2021-08-10] MEDS: IBUPROFEN 600 MG TABLET PO SCH ×2 (08:33→14:07)
[2021-08-10] MEDS: ACETAMINOPHEN 500 MG TABLET PO SCH ×2 (08:35→17:06)
[2021-08-10] MEDS ORDERED: ESCITALOPRAM 10 MG TABLET PO SCH (14:30)
[2021-08-11] MEDS: IBUPROFEN 600 MG TABLET PO SCH ×4 (01:18→20:40)
[2021-08-11] MEDS: ACETAMINOPHEN 500 MG TABLET PO SCH ×3 (01:19→18:19)
[2021-08-11 06:31] LABS: BASOPHILS # (AUTO) 0.1 10^3/uL (0.0-0.1); BASOPHILS % (AUTO) 0.5 %; EOSINOPHILS # (AUTO) 0.3 10^3/uL (0.0-0.7); EOSINOPHILS % (AUTO) 2.2 %; HGB - HEMOGLOBIN 7.6 g/dL (12.0-16.0); LYMPHOCYTES # (AUTO) 1.9 10^3/uL (1.5-3.5); LYMPHOCYTES % (AUTO) 14.7 %; MEAN CORPUSCULAR HEMOGLOBIN 25.3 pg (27.0-31.0); MEAN CORPUSCULAR HGB CONC 31.7 g/dL (32.0-36.0); MEAN PLATELET VOLUME 10.6 fL (7.9-10.8); MONOCYTES # (AUTO) 1.1 10^3/uL (0.0-1.0); MONOCYTES % (AUTO) 8.8 %; NEUTROPHILS # (AUTO) 9.4 10^3/uL (1.5-6.6); NEUTROPHILS % (AUTO) 73.1 %; PLT - PLATELET COUNT 230 10^3/uL (130-450); RED CELL DISTRIBUTION WIDTH 14.6 % (12.0-15.0); WHITE BLOOD COUNT 12.9 x10^3/uL (4.8-10.8)
--- NOTE | 2021-08-11 07:46 | Discharge Plan ---
Discharge Plan Problem Reviewed?: Yes Disposition: Home, Self Care Condition: Good Prescriptions: Acetaminophen [Acetaminophen Extra Strength] 1,000 mg PO Q8H PRN #60 tablet PRN Reason: Pain Docusate Sodium 100Mg Capsule [Colace 100Mg Capsule] 100 - 200 mg PO BID PRN #60 cap PRN Reason: Constipation Ibuprofen [Motrin] 600 mg PO Q6H PRN #30 tab PRN Reason: Pain Diet: Regular Instruction Topics: Vaginal No Smoking: If you smoke, Please STOP! Call for help. Follow-up with: Caroline Orellana MD [Provider Admit Priv/Credential] -
--- NOTE | 2021-08-11 07:51 | DISCHARGE SUMMARY ---
Discharge Summary Admit Date: 08/08/21 Discharge Date: 08/11/21 Discharging Provider: Sanjeev Daley MD Code Status: Attempt Resuscitation Condition at Discharge: Good Discharge Disposition: 01 Home, Self Care - DIAGNOSES Admission Diagnoses: Term labor/spontaneous rupture of membranes 37 weeks gestation Discharge Diagnoses with Status of Each Condition: Term labor/SROM: Delivered 37 weeks gestation: Delivered Prolonged rupture of membranes: Delivered Acute blood loss anemia: Stable - HPI History of Present Illness: Subjective Patient reports she is doing well. Lochia appropriate. Denies heavy bleeding. Ambulating. Pelvic and abdominal pain well-controlled. Tolerating oral intake. Diet: Regular. Voiding without difficulty. Passing flatus. Denies BM. Patient is bonding with baby in room Breast feeding going well. Denies feeling lightheaded, dizzy or excessively fatigued. Objective General: Alert, oriented, no apparent distress. Cardiovascular: Regular rate. Regular rhythm. Lungs: No increased work of breathing. Abdomen: Uterus firm. Below umbilicus. No guarding or rebound. - HOSPITAL COURSE Hospital Course: Patient was admitted at 37 weeks 6 days 36 weeks 6 days gestation for spontaneous rupture membrane, she was started on oxytocin for augmentation. At 37 weeks 0 days, she had a spontaneous vaginal delivery complicated by 42nd shoulder dystocia. Her was large for gestational age. She did receive several medications for hemorrhage due to uterine atony, and had acute blood loss anemia . She was vitally stable and asymptomatic, and she was discharged on day 1. - ALLERGIES Allergies/Adverse Reactions: Allergies Allergy/AdvReac Type Severity Reaction Status Date / Time shellfish derived Allergy Unknown Unknown Verified 08/08/21 21:38 - MEDICATIONS Home Medications: Ambulatory Orders Medication Instructions Recorded Confirmed Acetaminophen [Acetaminophen Extra 1,000 mg PO Q8H PRN #60 tablet 08/11/21 Strength] Docusate Sodium 100Mg Capsule 100 - 200 mg PO BID PRN #60 cap 08/11/21 [Colace 100Mg Capsule] Ibuprofen [Motrin] 600 mg PO Q6H PRN #30 tab 08/11/21 - LABS Result Diagrams: 08/11/21 06:25 08/08/21 22:40 - FOLLOW UP Follow Up: With Caroline Orellana in 1 to 2 weeks - TIME SPENT Time Spent in Discharge (Minutes): 20
[2021-08-12 08:01] VITALS: BP 137/76
[2021-08-12] MEDS: ACETAMINOPHEN 500 MG TABLET PO SCH (08:09)
[2021-08-12] MEDS: IBUPROFEN 600 MG TABLET PO SCH (08:09)
--- NOTE | 2021-08-12 08:20 | DISCHARGE SUMMARY ---
Discharge Summary Admit Date: 08/08/21 Discharge Date: 08/12/21 Discharging Provider: Sanjeev Daley MD Code Status: Attempt Resuscitation Condition at Discharge: Good Discharge Disposition: 01 Home, Self Care - DIAGNOSES Admission Diagnoses: Term labor/spontaneous rupture of membranes 37 weeks gestation Gestational Hypertension Discharge Diagnoses with Status of Each Condition: Term labor/SROM: Delivered 37 weeks gestation: Delivered Prolonged rupture of membranes: Delivered Gestational hypertension: Delivered Acute blood loss anemia: Stable - HPI History of Present Illness: Subjective Patient reports she is doing well. Lochia appropriate. Denies heavy bleeding. Ambulating. Pelvic and abdominal pain well-controlled. Tolerating oral intake. Diet: Regular. Voiding without difficulty. Passing flatus. Patient is bonding with baby in room Breast feeding going well. Denies feeling lightheaded, dizzy or excessively fatigued. Objective General: Alert, oriented, no apparent distress. Cardiovascular: Regular rate. Regular rhythm. Lungs: No increased work of breathing. Abdomen: Uterus firm. Below umbilicus. - HOSPITAL COURSE Hospital Course: Patient was admitted at 37 weeks 6 days 36 weeks 6 days gestation for spontaneous rupture membrane, she was started on oxytocin for augmentation. At 37 weeks 0 days, she had a spontaneous vaginal delivery complicated by 42nd shoulder dystocia. Her was large for gestational age. She did receive several medications for hemorrhage due to uterine atony, and had acute blood loss anemia . Her course was unremarkable, she had a couple elevated, but nonsevere blood pressures and was discharged on day 2. - ALLERGIES Allergies/Adverse Reactions: Allergies Allergy/AdvReac Type Severity Reaction Status Date / Time shellfish derived Allergy Unknown Unknown Verified 08/08/21 21:38 - MEDICATIONS Home Medications: Ambulatory Orders Medication Instructions Recorded Confirmed Acetaminophen [Acetaminophen Extra 1,000 mg PO Q8H PRN #60 tablet 08/11/21 Strength] Docusate Sodium 100Mg Capsule 100 - 200 mg PO BID PRN #60 cap 08/11/21 [Colace 100Mg Capsule] Ibuprofen [Motrin] 600 mg PO Q6H PRN #30 tab 08/11/21 - LABS Result Diagrams: 08/11/21 06:25 08/08/21 22:40 - FOLLOW UP Follow Up: Follow-up with Caroline Orellana in 1 week. - TIME SPENT Time Spent in Discharge (Minutes): 15
--- NOTE | 2021-08-12 12:07 | Labor Flowsheet ---
Labor Flowsheet Datetime Report Generated by CPN: 08/12/2021 12:07 Datetime: 08/12/2021 07:53 VITAL SIGNS NBP Sys/Abi/Mean (mmHg): 137 : 76 : 92 Pulse: 70 Datetime: 08/11/2021 20:44 SpO2 (%): 100 Datetime: 08/10/2021 04:57 Respirations: 20 Datetime: 08/10/2021 04:50 Stage of : Recovery Datetime: 08/10/2021 04:11 Comments: Delivery at 0412, 50 sec shoulder distocia, Ale and super pubic done, Left shoulder reduced by Dr. Daley Datetime: 08/10/2021 04:01 UTERINE ACTIVITY Monitor Mode: Internal Frequency (min): 1.5-3 Duration (sec): 80-120 Pattern: Normal: <= 5 Contractions in 10 Minutes Resting Tone (Palpate): Relaxed Contraction Comments: , pushing well, 2nd RN and charge nurse at bedside for delivery ASSESSMENT A Monitor Mode: External US FHR Baseline Rate : 110 FHR Baseline Changes: No Baseline Change Variability: Moderate 6-25 bpm Accelerations: 15X15 Decelerations: Variable Category: Category II Oxygen Method: Room Air Datetime: 08/10/2021 03:12 MEDICATIONS Pitocin (milliunits): Increased to @ 30 Datetime: 08/10/2021 02:41 Communication Comments: Update Dr. Daley, SVE complete +2, Pushing x 1 with progress, Cat 1 stri p, Instr to cont to push, provider requests 7 min notificatio. Will cont to monitor and actively pus h with pt and update as needed Datetime: 08/10/2021 02:36 VAGINAL EXAM Dilatation (cm): 10.0 Effacement (%): 100 Station: 2 Exam by: Naga Clark Vaginal Bleeding: Normal Show Datetime: 08/10/2021 02:30 Resting Tone IUP (mmHg): 20 Intensity IUP (mmHg): 40-60 [place] Units (mmHg): 110 LaborFlag: Labor Datetime: 08/10/2021 01:58 Vaginal Exam Comments: Right anterior lip Patient Position/Activity: Left Extreme Patient Care Comments: Side lying release, peanut ball Datetime: 08/10/2021 00:16 Temperature (C): 36.7 Datetime: 08/10/2021 00:07 Medication Comments: new ropivicane bag hung Datetime: 08/09/2021 23:28 PATIENT CARE IV/Blood Work: IV Bolus Started; IV Bolus Given ml @ 300 Datetime: 08/09/2021 22:40 Cervix, Consistency: Soft Cervix, Position: Midposition Datetime: 08/09/2021 21:48 Antiemetics/Antacids: Zofran (mg) @ 4 Datetime: 08/09/2021 21:01 Quality: Moderate Datetime: 08/09/2021 20:31 Monitor Interventions for UA: IUPC Inserted Datetime: 08/09/2021 16:22 COMMUNICATION Communication: Call/Page Placed to Provider Provider Notified (Name): Dr. Daley Notification Reason: Status Update; Labor Status; Uterine Activity Datetime: 08/09/2021 13:59 Monitor Interventions for FHR: Ultrasound Adjusted Datetime: 08/09/2021 12:00 Pitocin Checklist: At Least 1 Acceleration of 15 bpm x 15 Seconds in 30 Minutes or Adequate Variabi lity; No More than 1 Late Deceleration Occurred in Past 30 Minutes; No More than 2 Variable Decelerat ions > 60 Seconds in Duration and decreasing >60 bpm in 30 minutes; No More than 5 Uterine Contractio ns in 10 Minutes for any 20 Minute Interval; Uterus Palpates Soft between Contractions Datetime: 08/09/2021 11:39 Anesthesia Level Check: T10- Umbilicus Datetime: 08/09/2021 08:10 ANESTHESIA Anesthesia Plans: Epidural Epidural Procedure: Loading Dose; Completed Datetime: 08/09/2021 07:45 Epidural Positioning: Sitting Anesthesia Comments: NO administered for pt. anxiety Datetime: 08/09/2021 07:32 PROCEDURE TIME OUT Procedure Verify: Correct Patient Identity; Correct Side and Site are Marked; Accurate Procedure Co nsent Form; Agreement on Procedure to be Done; Correct Patient Position Datetime: 08/09/2021 06:46 Pain Assessment Comments: requesting epidural Datetime: 08/09/2021 06:16 I/O Interventions: Up to BR Datetime: 08/09/2021 05:41 PAIN Pain Scale: 4 Datetime: 08/09/2021 05:36 Nausea/Vomiting: Present Datetime: 08/09/2021 05:16 Analgesics/Sedatives: Fentanyl (mcg) @ 50 Datetime: 08/09/2021 05:00 Temperature Route: Oral Datetime: 08/09/2021 03:19 Vital Sign Comments: attempted to take BP on Right lower leg received irred result retake on r arm Datetime: 08/09/2021 02:47 Membrane Status: Ruptured Membranes Rupture Method: Spontaneous Amniotic Fluid Color: Clear Amniotic Fluid Amount: Moderate Amniotic Fluid Odor: Normal Pool: Positive MATERNAL ASSESSMENT Level of Consciousness: Alert DTR's/Clonus: DTRs 2+ Headache: Denies Breath Sounds, Left: Clear and Equal Breath Sounds, Right: Clear and Equal RUQ Epigastric Pain: Denies Datetime: 08/08/2021 22:10 Membranes Ruptured Date/Time: 08/08/2021 20:00 Datetime: 08/08/2021 21:45 Pain Presence: None/Denies
--- NOTE | 2021-08-16 14:59 | ANESTHESIA POST OP EVALUATION ---
Anesthesia Post Eval - Post Anesthesia Eval Vitals: Last Vital Signs Temp 36.8 C 08/12/21 08:00 Pulse 69 08/12/21 08:00 Resp 20 08/12/21 08:00 BP 137/76 H 08/12/21 08:00 Pulse Ox 100 08/12/21 08:00 CV Function Including HR & BP: Stable Pain Control: Satisfactory Nausea & Vomiting: Negative Mental Status: Baseline Respiratory Status: Airway Patent Hydration Status: Satisfactory Anesthesia Complications: None
== END 2021-08-12 11:35 | disposition home or self-care (01) | DRG 806 ==
LOC: WFO 21:19 → FBP 21:22 → OBSVTOIN 21:38 → WFO 21:38 → FBP 21:50
PROVIDERS: ADMIT Obstetrics & Gynecology; ATTEND Obstetrics & Gynecology
PROC: 10H07YZ Insertion of Other Device into Products of Conception, Via Natural or Artificial Opening (ICD-10-PCS; 2021-08-09)
PROC: 10E0XZZ Delivery of Products of Conception, External Approach (ICD-10-PCS; principal; 2021-08-10)
PROC: 0HQ9XZZ Repair Perineum Skin, External Approach (ICD-10-PCS; 2021-08-10)
DX: O13.4 Gestational [pregnancy-induced] hypertension without significant proteinuria, complicating childbirth (principal); D62 Acute posthemorrhagic anemia; Z37.0 Single live birth; O42.02 Full-term premature rupture of membranes, onset of labor within 24 hours of rupture; O66.0 Obstructed labor due to shoulder dystocia; O36.63X0 Maternal care for excessive fetal growth, third trimester, not applicable or unspecified; Z3A.37 37 weeks gestation of pregnancy; O90.81 Anemia of the puerperium; O72.1 Other immediate postpartum hemorrhage; O26.893 Other specified pregnancy related conditions, third trimester; L29.9 Pruritus, unspecified; O70.0 First degree perineal laceration during delivery; O99.344 Other mental disorders complicating childbirth; F41.9 Anxiety disorder, unspecified
CPT/HCPCS: 36415; 59025; 76815; 80053; 85025; 86850; 86900; 86901; 86920; 99215; A9270; J2210; J7120

== ENCOUNTER 2021-08-17 11:53 | Emergency (ER) | payer OTHER ==
[2021-08-17 12:37] LABS: BASOPHILS # (AUTO) 0.1 10^3/uL (0.0-0.1); BASOPHILS % (AUTO) 0.9 %; EOSINOPHILS # (AUTO) 0.3 10^3/uL (0.0-0.7); EOSINOPHILS % (AUTO) 3.1 %; HCT - HEMATOCRIT 28.2 % (37.0-47.0); HGB - HEMOGLOBIN 8.8 g/dL (12.0-16.0); LYMPHOCYTES # (AUTO) 1.5 10^3/uL (1.5-3.5); LYMPHOCYTES % (AUTO) 16.4 %; MEAN CORPUSCULAR HEMOGLOBIN 25.1 pg (27.0-31.0); MEAN CORPUSCULAR HGB CONC 31.2 g/dL (32.0-36.0); MEAN CORPUSCULAR VOLUME 80.3 fL (81.0-99.0); MONOCYTES # (AUTO) 0.7 10^3/uL (0.0-1.0); MONOCYTES % (AUTO) 7.3 %; NEUTROPHILS # (AUTO) 6.6 10^3/uL (1.5-6.6); NEUTROPHILS % (AUTO) 70.9 %; PLT - PLATELET COUNT 415 10^3/uL (130-450); RED BLOOD COUNT 3.51 10^6/uL (4.20-5.40); RED CELL DISTRIBUTION WIDTH 14.6 % (12.0-15.0); WHITE BLOOD COUNT 9.4 x10^3/uL (4.8-10.8)
--- NOTE | 2021-08-17 12:47 | ED Physician Documentation ---
History of Present Illness - Stated complaint Stated Complaint: SOA - Chief complaint Chief Complaint: Resp - History obtained from History obtained from: Patient - History of Present Illness Timing: How many weeks ago (1) Pain level max: 0 Pain level now: 0 - Additonal information Additional information: 30-year-old female, 1 para 1 who presents to the emergency department stating that she gave about 1 week ago. She states that delivery was complicated by a hemorrhage. She did not require blood transfusion but her hemoglobin did drop down to 7. She states that since she has gotten home she has noticed that she is short of breath when walking upstairs or lying down. Has had a mild cough. No congestion. No fever. Better with rest, worse with exertion. She states her vaginal discharge and bleeding have decreased. She is currently breast-feeding. She states she also has -induced hypertension, normal blood pressures in the 140s systolic. She states she also has a history of anxiety and is currently on her anxiety medication. Review of Systems Constitutional: denies: Fever, Chills Respiratory: denies: Cough GI: denies: Abdominal Pain, Nausea, Vomiting, Diarrhea : denies: Dysuria, Frequency, Hesitancy, Now EGA Skin: denies: Rash Musculoskeletal: denies: Neck pain, Back pain Neurologic: denies: Focal weakness, Headache, Head injury PD PAST MEDICAL HISTORY - Past Medical History Cardiovascular: None Respiratory: None Neuro: None Endocrine/Autoimmune: None GI: None : None Musculoskeletal: None Derm: None - Present Medications Home Medications: Ambulatory Orders Medication Instructions Recorded Confirmed Acetaminophen [Acetaminophen Extra 1,000 mg PO Q8H PRN #60 tablet 08/11/21 Strength] Docusate Sodium 100Mg Capsule 100 - 200 mg PO BID PRN #60 cap 08/11/21 [Colace 100Mg Capsule] Ibuprofen [Motrin] 600 mg PO Q6H PRN #30 tab 08/11/21 Furosemide [Lasix] 20 mg PO DAILY #5 tablet 08/17/21 - Allergies Allergies/Adverse Reactions: Allergies Allergy/AdvReac Type Severity Reaction Status Date / Time shellfish derived Allergy Unknown Unknown Verified 08/17/21 12:23 - Social History Smoking Status: Former smoker PD ED PE NORMAL - Vitals Vital signs reviewed: Yes - General General: Alert and oriented X 3, No acute distress - HEENT HEENT: PERRL, Moist mucous membranes - Neck Neck: Supple, no meningeal sign - Cardiac Cardiac: RRR, Strong equal pulses - Respiratory Respiratory: No respiratory distress, Clear bilaterally - Abdomen Abdomen: Soft, Non tender, Non distended - Derm Derm: Warm and dry - Extremities Extremities: No edema, No calf tenderness / cord - Neuro Neuro: Alert and oriented X 3 - Psych Psych: Normal mood, Normal affect Results - Vitals Vitals: Vital Signs - 24 hr 08/17/21 08/17/21 08/17/21 12:20 12:52 13:46 Temperature 97.6 C H Heart Rate 63 62 54 L Respiratory 16 16 17 Rate Blood Pressure 181/99 H 146/98 H 152/100 H O2 Saturation 97 96 98 08/17/21 14:21 Temperature Heart Rate 78 Respiratory 20 Rate Blood Pressure 148/88 H O2 Saturation 98 Oxygen O2 Source Room air - EKG (time done) 1247 Rate: Rate (enter#) (58) Rhythm: NSR [place]: Normal Intervals: Normal RI QRS: Normal Ischemia: Normal ST segments Computer interpretation: Agree with computer - Labs Labs: Laboratory Tests 08/17/21 08/17/21 08/17/21 12:33 12:33 12:33 WBC 9.4 RBC 3.51 L Hgb 8.8 L Hct 28.2 L MCV 80.3 L MCH 25.1 L MCHC 31.2 L RDW 14.6 Plt Count 415 MPV 10.0 Neut # (Auto) 6.6 Lymph # (Auto) 1.5 [place] # (Auto) 0.7 Eos # (Auto) 0.3 Baso # (Auto) 0.1 Absolute Nucleated RBC 0.00 Nucleated RBC % 0.0 Sodium 138 Potassium 4.1 Chloride 107 Carbon Dioxide 22 Anion Gap 9.0 BUN 11 Creatinine 0.6 Estimated GFR (MDRD) 119 Glucose 93 Calcium 8.4 L Total Bilirubin 0.4 AST 15 ALT 25 Alkaline Phosphatase 149 H B-Natriuretic Peptide 235 H Total Protein 6.6 L Albumin 2.7 L Globulin 3.9 Albumin/Globulin Ratio 0.7 L Nasal Adenovirus (PCR) Nasal B. parapertussis DNA (PCR) Nasal Coronavir 229E PCR Nasal Coronavir HKU1 PCR Nasal Coronavir NL63 PCR Nasal Coronavir OC43 PCR Nasal Enterovir/Rhinovir PCR Nasal Influenza B PCR Nasal Influenza A PCR Nasal Parainfluen 1 PCR Nasal Parainfluen 2 PCR Nasal Parainfluen 3 PCR Nasal Parainfluen 4 PCR Nasal RSV (PCR) Nasal B.pertussis DNA PCR Nasal C.pneumoniae (PCR) Baldo Human Metapneumo PCR Nasal M.pneumoniae (PCR) Nasal SARS-CoV-2 (PCR) 08/17/21 14:05 WBC RBC Hgb Hct MCV MCH MCHC RDW Plt Count MPV Neut # (Auto) Lymph # (Auto) [place] # (Auto) Eos # (Auto) Baso # (Auto) Absolute Nucleated RBC Nucleated RBC % Sodium Potassium Chloride Carbon Dioxide Anion Gap BUN Creatinine Estimated GFR (MDRD) Glucose Calcium Total Bilirubin AST ALT Alkaline Phosphatase B-Natriuretic Peptide Total Protein Albumin Globulin Albumin/Globulin Ratio Nasal Adenovirus (PCR) NOT DETECTED Nasal B. parapertussis DNA (PCR) NOT DETECTED Nasal Coronavir 229E PCR NOT DETECTED Nasal Coronavir HKU1 PCR NOT DETECTED Nasal Coronavir NL63 PCR NOT DETECTED Nasal Coronavir OC43 PCR NOT DETECTED Nasal Enterovir/Rhinovir PCR NOT DETECTED Nasal Influenza B PCR NOT DETECTED Nasal Influenza A PCR NOT DETECTED Nasal Parainfluen 1 PCR NOT DETECTED Nasal Parainfluen 2 PCR NOT DETECTED Nasal Parainfluen 3 PCR NOT DETECTED Nasal Parainfluen 4 PCR NOT DETECTED Nasal RSV (PCR) NOT DETECTED Nasal B.pertussis DNA PCR NOT DETECTED Nasal C.pneumoniae (PCR) NOT DETECTED Baldo Human Metapneumo PCR NOT DETECTED Nasal M.pneumoniae (PCR) NOT DETECTED Nasal SARS-CoV-2 (PCR) NOT DETECTED - Rads (name of study) CT angio chest Radiology: Final report received, EMP read contemporaneously, See rad report PD MEDICAL DECISION MAKING - ED course Complexity details: reviewed results, re-evaluated patient, considered differential, d/w patient ED course: Initial blood pressure was 181/99, a large cuff was placed on the patient and and her blood pressure was rechecked and found to be 148/96. No evidence of PE on CT angio of the chest. She does have a small to moderate bilateral pleural effusions. Negative Covid swab. Discussed the case with OB on-call, Dr. Orellana. We will start the patient on Lasix and have her follow- up in the office. Patient is very well-appearing, nontoxic. Afebrile. No hypoxia or respiratory distress. Patient counseled regarding signs and symptoms for which I believe and urgent re-evaluation would be necessary. Patient with good understanding of and agreement to plan and is comfortable going home at this time This document was made in part using voice recognition software. While efforts are made to proofread this document, sound alike and grammatical errors may occur. IMPRESSION: 1. No evidence of central pulmonary embolism. Evaluation of distal subsegmental branches slightly limited by motion artifact. 2. Small to moderate bilateral pleural effusions. 3. Clustered small groundglass nodules with a basilar and right-sided predominance suggestive of an atypical pneumonia. 4. Indistinct groundglass opacities and mild septal thickening consistent with pulmonary edema. Departure - Departure Disposition: Home, Self Care Clinical Impression: Pleural effusion Anemia Qualifiers: Anemia type: unspecified type Qualified Code(s): D64.9 - Anemia, unspecified Dyspnea Qualifiers: Dyspnea type: unspecified Qualified Code(s): R06.00 - Dyspnea, unspecified Condition: Good Instructions: ED Dyspnea Shortness of Breath, ED Effusion Pleural Follow-Up: Caroline Orellana MD [Provider Admit Priv/Credential] - Within 1 week Prescriptions: Furosemide [Lasix] 20 mg PO DAILY #5 tablet Comments: Your prescription was sent to [facility] in [place]. I discussed her case with Dr. Orellana today. She will follow up with you next week. Please return sooner if you worsen. The Covid tests is pending and I will call you if it is positive. I think that your symptoms are likely due to your anemia as well as the pleural effusions. This should continue to improve. Please continue to walk at home as well. Discharge Date/Time: 08/17/21 14:25
[2021-08-17 12:51] LABS: ALBUMIN 2.7 g/dL (3.2-5.5); ALBUMIN/GLOBULIN RATIO 0.7 (1.0-2.2); BILIRUBIN,TOTAL 0.4 mg/dL (0.2-1.0); CALCIUM 8.4 mg/dL (8.5-10.3); CREATININE 0.6 mg/dL (0.4-1.0); POTASSIUM 4.1 mmol/L (3.5-5.0); TOTAL PROTEIN 6.6 g/dL (6.7-8.2)
[2021-08-17] MEDS ORDERED: IOVERSOL 320 100 ML VIAL IVP ONE ×2 (12:54→13:15)
--- NOTE | 2021-08-17 13:38 | CT Report ---
PROCEDURE: ANGIO CHEST W/WO INDICATIONS: dyspnea, 1 week post CONTRAST: IV CONTRAST: Optiray 320 ml: 80 PO CONTRAST: *NO PO CONTRAST TECHNIQUE: After the administration of intravenous contrast, 2 mm axial images were acquired from the pulmonary apices to the posterior costophrenic angles during the arterial phase. In addition, 1 mm lung kernel and 5 mm soft tissue kernel reconstructions were performed. 3-dimensional coronal oblique maximum int ensity projection (MIP) reformats, 8 mm axial MIP, and 5 mm coronal and sagittal MPR reformats were t hen performed through the thorax. For radiation dose reduction, the following was used: automated exp osure control, adjustment of mA and/or kV according to patient size. COMPARISON: None. FINDINGS: Image quality: There is streak artifact and mild motion artifact limiting evaluation. Pulmonary arteries: Pulmonary arteries are normal in size, and demonstrate no intraluminal filling d efects to suggest central pulmonary embolism. Evaluation of distal subsegmental branches is slightly limited by motion artifact. Lungs and pleura: There are small to moderate-sized bilateral pleural effusions with associated compr essive atelectasis. Indistinct groundglass opacities also demonstrated bilaterally with mild septal t hickening consistent with pulmonary edema. There are small clustered groundglass nodules also demonst rated with a basilar and right-sided predominance. The trachea and central airways are patent. No pne umothorax. Mediastinum: Heart size is normal, without pericardial effusion. No mediastinal or hilar adenopathy . Thoracic aorta is normal in caliber and enhancement. Esophagus is normal in caliber, without hiat al hernia. Bones and chest wall: No suspicious bony lesions. Ribs and thoracic spine appear intact throughout. No axillary or supraclavicular adenopathy. The visualized thyroid demonstrates no discrete nodules. Abdomen: Visualized upper abdominal solid organs appear normal in the early arterial phase of enhan cement. IMPRESSION: 1. No evidence of central pulmonary embolism. Evaluation of distal subsegmental branches slightly lopez ited by motion artifact. 2. Small to moderate bilateral pleural effusions. 3. Clustered small groundglass nodules with a basilar and right-sided predominance suggestive of an a typical pneumonia. 4. Indistinct groundglass opacities and mild septal thickening consistent with pulmonary edema. Reviewed by: Ray Salcedo MD on 08/17/2021 1:37 PM PST Approved by: Ray Salcedo MD on 08/17/2021 1:37 PM [facility] Station ID: [id number]
[2021-08-17 14:23] VITALS: BP 148/88
[2021-08-17 15:08] LABS: B. PARAPERTUSSIS- RESP PCR PAN NOT DETECTED; B. PERTUSSIS- RESP PCR PANEL NOT DETECTED; C. PNEUMONIAE- RESP PCR PANEL NOT DETECTED; CORONAVIRUS 229E-RESP PCR NOT DETECTED; CORONAVIRUS HKU1-RESP PCR NOT DETECTED; CORONAVIRUS NL63-RESP PCR NOT DETECTED; CORONAVIRUS OC43-RESP PCR NOT DETECTED; HUMAN METAPNEUMOVIRUS NOT DETECTED; INFLUENZA A- RESP PCR PANEL NOT DETECTED; INFLUENZA B - RESP PCR PANEL NOT DETECTED; M. PNEUMONIAE- RESP PCR PANEL NOT DETECTED; PARAINFLUENZA VIRUS 1 NOT DETECTED; PARAINFLUENZA VIRUS 2 NOT DETECTED; PARAINFLUENZA VIRUS 3 NOT DETECTED; PARAINFLUENZA VIRUS 4 NOT DETECTED; RHINOVIRUS/ENTEROVIRUS NOT DETECTED; RSV- RESP PCR PANEL NOT DETECTED; SARS-CoV-2 -RESP PCR PANEL NOT DETECTED
== END 2021-08-17 14:25 | disposition home or self-care (01) ==
LOC: ED 11:53
DX: O90.89 Other complications of the puerperium, not elsewhere classified (principal); J90 Pleural effusion, not elsewhere classified; O90.81 Anemia of the puerperium; Z87.891 Personal history of nicotine dependence; Z20.822 Contact with and (suspected) exposure to COVID-19
CPT/HCPCS: 0202U; 36415; 71275; 80053; 83880; 85025; 93005; 99284; Q9967